=== PATIENT | male | born 1940 | race Caucasian/White ===

== ENCOUNTER 2020-09-20 06:53 | Day surgery (SDC) | payer MEDICARE, BC ==
[~2020-09-20] VITALS: Ht 175.3 cm; Wt 77.9 kg
[~2020-09-20 06:53] MED LIST: ALBU90OI INH; ASCO500 PO; ATOR10 PO; Flovent Disku250 MCG INH; GINKGO60 MG PO; OMEGA-3 FISH O1 EAC5 PO; VITAMIN D310 MC4 PO
--- NOTE | 2020-09-20 07:52 | NUR ---
09/20/20 0752 Raquel PedersonHue CHARTING BY [facility].S
== END 2020-09-20 09:10 | disposition home or self-care (01) ==
LOC: ORSCSDS 06:53
PROVIDERS: Surgery
PROC: 3E0H8GC Introduction of Other Therapeutic Substance into Lower GI, Via Natural or Artificial Opening Endoscopic (ICD-10-PCS; principal; 2020-09-20 08:00)
PROC: 0DBP8ZX Excision of Rectum, Via Natural or Artificial Opening Endoscopic, Diagnostic (ICD-10-PCS; principal; 2020-09-20 08:00)
DX: R19.4 Change in bowel habit (principal); D12.8 Benign neoplasm of rectum; D12.4 Benign neoplasm of descending colon; K64.4 Residual hemorrhoidal skin tags; K40.90 Unilateral inguinal hernia, without obstruction or gangrene, not specified as recurrent; Z87.891 Personal history of nicotine dependence; J45.909 Unspecified asthma, uncomplicated; Z79.899 Other long term (current) drug therapy
CPT/HCPCS: 82947; 88305; J2704; J7120

== ENCOUNTER 2020-09-24 15:20 | Inpatient (IN) | payer MEDICARE, BC ==
[~2020-09-24] VITALS: Ht 175.3 cm; Wt 71.0 kg
--- NOTE | 2020-09-24 15:29 | NUR ---
PT ARRIVED TO UNIT DIRECT ADMIT TO DR ENRIQUEZ AT APROX [id number]
[2020-09-24 17:05] LABS: Alanine Aminotransfer (ALT/SGP 25 U/L (12-78); Albumin, Blood 3.7 g/dL (3.4-5.0); Albumin/Globulin Ratio 1.2 (0.8-1.8); Alk Phos 42 U/L (50-136); Anion Gap 5 mmol/L (6-16); Aspartate Aminotrans (AST/SGOT 25 U/L (12-37); Bilirubin, Total 0.6 mg/dL (0.1-1.0); Blood Urea Nitrogen 8 mg/dL (8-24); CO2, Blood 26 mmol/L (21-32); Calcium, Blood 9.1 mg/dL (8.5-10.1); Chloride, Blood 108 mmol/L (98-108); Creatinine, Blood 0.89 mg/dL (0.60-1.20); Glomerular Filtration Rate >60 (60-); Glucose, Blood 88 mg/dL (70-99); Potassium, Blood 3.8 mmol/L (3.5-5.5); Sodium, Blood 139 mmol/L (136-145); Total Protein, Blood 6.7 g/dL (6.4-8.2)
--- NOTE | 2020-09-24 18:33 | NUR ---
SHIFT SUMMARY PT HAS DONE WELL SINCE ARRIVAL TO UNIT. IVF RUNNING PER EMAR. INDEPENDENTLY AMBULATING IN ROOM. ABD DISTENDED, TENDER WITH PALPATION-PT REPORTS PAIN TOLERABLE. PLAN TO CONTINUE IV HYDRATION TILL SCHEDULED SURGERY WEDNESDAY WITH DR ENRIQUEZ.
--- NOTE | 2020-09-25 04:01 | NUR ---
SHIFT SUMMARY NO ACUTE CHANGES THIS SHIFT. PT DENIES NEED FOR PAIN MEDICATIONS AND PREFERS TO "MASSAGE" HIS ABDOMEN WHEN HE FEELS CRAMPING WHICH HE REPORTS MAKES IT FEEL BETTER. IVF INFUSING PER ORDERS. PT INDEP TO THE RESTROOM. USES CALL LIGHT APPROPRIATELY.
--- NOTE | 2020-09-25 10:44 | NUR ---
AMBULATED DOWN THE HALLS THIS AM, DENIES ANY PAIN OR NAUSEA.
--- NOTE | 2020-09-25 15:12 | NUR ---
RESTING IN BED, ENCOURAGED TO AMBULATE, DENIES ANY PAIN OR NAUSEA, REPORTS TOELRATING CLEAR LIQUIDS WELL.
--- NOTE | 2020-09-25 17:48 | NUR ---
DENIED ANY PAIN OR NAUSEA TODAY, REPORTS TOLERATING CLEAR LIQUIDS WELL, REPORTS HAVING SOME LOOSE STOOLS TODAY, AMBULATED DOWN THE HALLS X2, NPO AFTER MN, NO ACUTE CHANGES THIS SHIFT.
[2020-09-26 04:18] LABS: BASOPHILS ABSOLUTE AUTO 0.02 K/mm3 (0.00-0.23); BASOPHILS PERCENT AUTO 0 % (0-2); EOSINOPHILS ABSOLUTE AUTO 0.09 K/mm3 (0.00-0.68); EOSINOPHILS PERCENT AUTO 2 % (0-6); Hematocrit 43.7 % (37.0-53.0); IMMATURE GRAN ABSOLUTE AUTO 0.01 K/mm3 (0.00-0.10); IMMATURE GRAN PERCENT AUTO 0 % (0-1); LYMPHOCYTES ABSOLUTE AUTO 1.73 K/mm3 (0.84-5.20); LYMPHOCYTES PERCENT AUTO 32 % (21-46); MONOCYTES ABSOLUTE AUTO 0.64 K/mm3 (0.16-1.47); MONOCYTES PERCENT AUTO 12 % (4-13); Mean Corpuscular HGB 27.7 pg (26.0-34.0); Mean Corpuscular Volume 87 fL (80-100); Mean Platelet Volume 9.8 fL (9.1-12.4); NEUTROPHILS ABSOLUTE AUTO 2.85 K/mm3 (1.96-9.15); NEUTROPHILS PERCENT AUTO 53 % (41-73); Platelet Count 151 K/mm3 (150-400); RDW Coefficient Variation 12.7 % (11.7-14.2); RDW Standard Deviation 40.4 fL (35.1-46.3); Red Blood Cell Count 5.05 M/mm3 (4.30-5.90); White Blood Cell Count 5.34 K/mm3 (4.00-11.30)
[2020-09-26 04:38] LABS: Magnesium, Blood 2.7 mg/dL (1.6-2.4)
[2020-09-26 04:39] LABS: Anion Gap 4 mmol/L (6-16); Blood Urea Nitrogen 6 mg/dL (8-24); Bun/Creatinine Ratio 7.7 (12.0-20.0); CO2, Blood 27 mmol/L (21-32); Calcium, Blood 8.5 mg/dL (8.5-10.1); Chloride, Blood 112 mmol/L (98-108); Creatinine, Blood 0.78 mg/dL (0.60-1.20); Glomerular Filtration Rate >60 (60-); Glucose, Blood 113 mg/dL (70-99); Sodium, Blood 143 mmol/L (136-145)
--- NOTE | 2020-09-26 06:13 | NUR ---
PT VSS T/O NIGHT. PT DENIED ABD PAIN/N/V, REP +UNFORMED BM. PT INDEP IN ROOM, ANDRIA WELL. PT NPO POST MIDNIGHT FOR PLAN FOR HEMICOLECTOMY TODAY. IVF CONT PER ORDERS.
--- NOTE | 2020-09-26 10:34 | NUR ---
PT UNABLE TO ASSESS THIS AM, WAS TAKEN TO DAY SURGERY EARLY THIS AM, PT CURRENTLY IN OR.
--- NOTE | 2020-09-26 14:55 | NUR ---
POST OP ARRIVED FROM PACU VIA GURNEY, AWAKE BUT DROWSY, ANSWERS QUESTIONS APPROPRIATELY, DENIES ANY NAUSEA, REPORTS HAVING SOME INCISIONAL PAIN BUT DENIES ANY NEED FOR PAIN MEDS AT THIS TIME, LS CLEAR, HYPOACTIVE BT'S X4, ABD SOFT, MILDLY DISTENDED, CONT. TO MONITOR POST OP VS AND ANY CHANGES.
--- NOTE | 2020-09-26 17:40 | NUR ---
SUMMARY VSS, TOLERATING SMALL SIPS OF CLEAR LIQUIDS WELL, REPORTS PAIN IS BETTER AFTER MEDICATED WITH IV DILAUDID, ABD INCISIONS C/D/I, NO ACUTE CHANGES THIS SHIFT.
[2020-09-27 05:00] LABS: BASOPHILS ABSOLUTE AUTO 0.01 K/mm3 (0.00-0.23); BASOPHILS PERCENT AUTO 0 % (0-2); EOSINOPHILS PERCENT AUTO 0 % (0-6); Hematocrit 44.7 % (37.0-53.0); Hemoglobin 13.9 g/dL (13.5-17.5); IMMATURE GRAN ABSOLUTE AUTO 0.03 K/mm3 (0.00-0.10); IMMATURE GRAN PERCENT AUTO 0 % (0-1); LYMPHOCYTES PERCENT AUTO 7 % (21-46); MONOCYTES ABSOLUTE AUTO 1.19 K/mm3 (0.16-1.47); MONOCYTES PERCENT AUTO 9 % (4-13); Mean Corpuscular HGB 27.5 pg (26.0-34.0); Mean Corpuscular HGB Conc 31.1 g/dL (31.5-36.5); Mean Corpuscular Volume 89 fL (80-100); NEUTROPHILS ABSOLUTE AUTO 10.51 K/mm3 (1.96-9.15); NEUTROPHILS PERCENT AUTO 83 % (41-73); Platelet Count 163 K/mm3 (150-400); RDW Standard Deviation 42.4 fL (35.1-46.3); Red Blood Cell Count 5.05 M/mm3 (4.30-5.90); White Blood Cell Count 12.64 K/mm3 (4.00-11.30)
[2020-09-27 05:32] LABS: Magnesium, Blood 2.1 mg/dL (1.6-2.4)
[2020-09-27 05:33] LABS: Anion Gap 5 mmol/L (6-16); Blood Urea Nitrogen 7 mg/dL (8-24); Bun/Creatinine Ratio 6.9 (12.0-20.0); CO2, Blood 26 mmol/L (21-32); Calcium, Blood 8.4 mg/dL (8.5-10.1); Chloride, Blood 108 mmol/L (98-108); Creatinine, Blood 1.02 mg/dL (0.60-1.20); Glomerular Filtration Rate >60 (60-); Glucose, Blood 136 mg/dL (70-99); Potassium, Blood 4.5 mmol/L (3.5-5.5); Sodium, Blood 139 mmol/L (136-145)
--- NOTE | 2020-09-27 06:28 | NUR ---
POD 1 S/P LAP COLECTOMY. PT VSS T/O NIGHT. SATS LOW 90% ON 2LO2 NC. PT BREATHING SHALLOW R/T PAIN. PT HESITANT TO TAKE PAIN MEDS, EDUCATED ON IMPORTANCE OF PAIN MGMT R/T COMFORT, RESP STATUS, AND MOBILITY. PT REP PAIN IMPROVED THIS AM AFTER PRN MEDS. PT UP OOB W/1 MOD ASSIST, IS PAINFUL W/MVMT. PT REP MILD NAUSEA X1, NO EMESIS. BT MORE ACTIVE THIS AM, NO FLATUS YET. INCISIONS CDI. PLAN TO D/C IRVING CATH THIS AM.
--- NOTE | 2020-09-27 15:35 | NUR ---
SHIFT SUMMARY: POD 1 LAP MALIA PATIENT IS ALERT AND ORIENTED X4. VS ARE WNL AND IS ON RA AT THIS TIME. HE WILL OCCASIONALLY PUT ON HIS NASAL CANNULA AT 2L OXYGEN PRN. PAIN IS MANAGED WITH IV DILAUDID THIS SHIFT. HE WORKED WITH PT TODAY AND WAS A 1 PERSON ASSIST WITH FWW AND GAIT BELT. HIS 3 LAP SITES ON THE ABD ARE C/D/I. HE IS TOLERATING SMALL AMOUNTS OF PO INTAKE. HE IS VOIDING WELL. PATIENT HAS PASSED SMALL AMOUNT OF GAS TODAY. PATIENT HAS AMBULATED IN THE ROOM TWICE TODAY. FAMILY MEMBER IS CURRENTLY AT BEDSIDE. CALL LIGHT WITHIN REACH. HE IS RESTING IN BED AT THIS TIME. THE PLAN IS TO CONTINUE PAIN MANAGEMENT AND ENCOURAGING MORE AMBULATION.
--- NOTE | 2020-09-27 20:11 | NUR ---
RECEIVED REPORT AND ASSUMED CARE OF PT. HE IS LYING IN BED, AWAKE, ALERT AND ORIENTED. HE STATES THAT HE TRIED TO BEND OVER AND RIPPER OPERATOR A TISSUE THAT WAS ON THE FLOOR AND HE LOST HIS BALANCE AND CAUGHT HIMSELF ON HIS HANDS AND KNEES. HE STATES THAT IT CAUSED PAIN TO HIS ABDOMINAL INCISION, BUT DENIES ANY OTHER SYMPTOMS. HE STATES THAT HE WAS ABLE TO GET HIMSELF BACK TO BED INDEPENDENTLY. HE WAS EDUCATED ON SAFETY AND FALL PREVENTION MEASURES AND REQUESTED TO CALL BEFORE GETTING OUT OF BED SO THAT STAFF CAN BE PRESENT FOR SAFETY. HE VERBALIZED UNDERSTANDING AND STATED THAT HE WOULD USE THE CALL LIGHT TO NOTIFY STAFF. WILL MEDICATE PER MAR. HE DENIES ANY OTHER COMPLAINTS OR CONCERNS AT THIS TIME. EZEQUIELTM.
[2020-09-28 04:29] LABS: BASOPHILS ABSOLUTE AUTO 0.01 K/mm3 (0.00-0.23); BASOPHILS PERCENT AUTO 0 % (0-2); EOSINOPHILS ABSOLUTE AUTO 0.02 K/mm3 (0.00-0.68); EOSINOPHILS PERCENT AUTO 0 % (0-6); Hematocrit 41.6 % (37.0-53.0); Hemoglobin 12.9 g/dL (13.5-17.5); IMMATURE GRAN ABSOLUTE AUTO 0.02 K/mm3 (0.00-0.10); IMMATURE GRAN PERCENT AUTO 0 % (0-1); LYMPHOCYTES ABSOLUTE AUTO 0.99 K/mm3 (0.84-5.20); LYMPHOCYTES PERCENT AUTO 13 % (21-46); MONOCYTES ABSOLUTE AUTO 0.96 K/mm3 (0.16-1.47); MONOCYTES PERCENT AUTO 12 % (4-13); Mean Corpuscular HGB 27.9 pg (26.0-34.0); Mean Corpuscular Volume 90 fL (80-100); NEUTROPHILS ABSOLUTE AUTO 5.93 K/mm3 (1.96-9.15); NEUTROPHILS PERCENT AUTO 75 % (41-73); Platelet Count 154 K/mm3 (150-400); RDW Coefficient Variation 12.7 % (11.7-14.2); RDW Standard Deviation 41.7 fL (35.1-46.3); Red Blood Cell Count 4.62 M/mm3 (4.30-5.90); White Blood Cell Count 7.93 K/mm3 (4.00-11.30)
--- NOTE | 2020-09-28 06:42 | NUR ---
SHIFT SUMMARY: KIRIT IS A&OX4. VSS, NO ACUTE EVENTS OVERNIGHT. HE HAS BEEN INDEPENDENT IN THE ROOM DESPITE STAFF REQUEST TO CALL. HE IS URINATING WITHOUT DIFFICULTY. LAP SITES C/D&I. HE IS TOLERATING SMALL AMOUNTS OF CLEARS. IV PATENT. HE REPORTS PASSING SMALL AMOUNTS OF FLATUS. HE REPORTS ADEQUATE PAIN CONTROL WITH TWO TABLETS OF OXYCODONE AND IV DILAUDID. HE IS LYING IN BED WITH THE CALL LIGHT IN REACH. WILL REPORT TO DAY SHIFT RN.
--- NOTE | 2020-09-28 16:35 | NUR ---
SHIFT SUMMARY PT IS A/O X4, IND IN ROOM. TOLERATING CLEAR LIQUID DIET W/O NAUSEA OR EMESIS. DENIES FLATUS OR BM TODAY. PT HAD SOME GAS PAIN AT START OF SHIFT AND WAS MEDICATED WITH SIMETHICONE PER EMAR. PT HAS DENIED PAIN TODAY AND DELCINED PAIN MEDICATION T/O THE SHIFT. HE WAS ABLE TO AMBULATE IN HALLWAY WITH THERAPY AND HAD A SHOWER TODAY. NO ACUTE CHANGES THIS SHIFT.
--- NOTE | 2020-09-28 19:45 | NUR ---
RECEIVED REPORT AND ASSUMED CARE OF PT. HE IS LYING IN BED, AWAKE, ALERT AND ORIENTED. DENIES ANY NEEDS AT THIS TIME. PT REPOSITIONED IN BED. TM.
--- NOTE | 2020-09-29 06:26 | NUR ---
SHIFT SUMMARY: KIRIT IS A&OX4. VSS, NO ACUTE EVENTS OVERNIGHT. HE REPORTS IMPROVING PAIN AND STATES THAT HE HAS PASSED A LITTLE FLATUS THIS SHIFT. HE REPORTS EXPECTING TO HAVE A BM TODAY. HE HAS RESTED QUIETLY FOR THE MAJORITY OF THE NIGHT. HE IS INDEPENDENT TO THE BATHROOM. HE IS LYING IN BED WITH THE CALL LIGHT IN REACH. WILL REPORT TO DAY SHIFT RN.
--- NOTE | 2020-09-29 17:54 | NUR ---
SHIFT SUMMARY PATIENT ALERT AND ORIENTED THROUGHOUT SHIFT. INDEPENDENT IN ROOM. TOLERATING REGULAR DIET THIS SHIFT. REPORTS A COUPLE EPISODES OF NAUSEA, NO VOMITING. ABD INCISIONS WNL. PAIN CONTROLLED WITH ORAL PAIN MEDS. VOIDING WELL. PLAN TO DISCHARGE HOME TOMORROW 09/30/20.
--- NOTE | 2020-09-29 20:02 | NUR ---
RECEIVED REPORT AND ASSUMED CARE OF PT. HE IS LYING QUIETLY IN BED, REPORTS THAT HIS PAIN IS IMPROVING AFTER THE RETURN OF BOWEL FUNCTION TODAY. DENIES ANY NEEDS AT THIS TIME. MARLENY.
--- NOTE | 2020-09-29 23:52 | NUR ---
PT REPORTS HAVING A BM WITH SEAN RED BLOOD "ENOUGH TO FILL THE ENTIRE BOWL". HE FLUSHED THE TOILET PRIOR TO ALERTING STAFF. HE REPORTS INTERMITTENT DIZZINESS/LIGHTHEADEDNESS THAT BEGAN YESTERDAY, DENIES ANY OTHER SYMPTOMS. CBC ORDERD FOR AM. PT REQUESTED TO CALL STAFF BEFORE FLUSHING TO ALLOW FOR VISUALIZATION OF SPECIMEN. EDUCATED ON SIGNS/SYMPTOMS AND ENCOURAGED TO CALL STAFF FOR ASSISTANCE OF DIZZINESS/LIGHTHEADEDNESS PERSISTS OR ANY NEW/WORSENING SYMPTOMS OCCUR.
[2020-09-30 02:36] LABS: BASOPHILS ABSOLUTE AUTO 0.01 K/mm3 (0.00-0.23); BASOPHILS PERCENT AUTO 0 % (0-2); EOSINOPHILS ABSOLUTE AUTO 0.11 K/mm3 (0.00-0.68); EOSINOPHILS PERCENT AUTO 3 % (0-6); Hematocrit 39.8 % (37.0-53.0); Hemoglobin 12.5 g/dL (13.5-17.5); IMMATURE GRAN ABSOLUTE AUTO 0.01 K/mm3 (0.00-0.10); IMMATURE GRAN PERCENT AUTO 0 % (0-1); LYMPHOCYTES ABSOLUTE AUTO 0.81 K/mm3 (0.84-5.20); LYMPHOCYTES PERCENT AUTO 21 % (21-46); MONOCYTES ABSOLUTE AUTO 0.77 K/mm3 (0.16-1.47); MONOCYTES PERCENT AUTO 20 % (4-13); Mean Corpuscular HGB 27.5 pg (26.0-34.0); Mean Corpuscular HGB Conc 31.4 g/dL (31.5-36.5); Mean Corpuscular Volume 88 fL (80-100); Mean Platelet Volume 9.8 fL (9.1-12.4); NEUTROPHILS ABSOLUTE AUTO 2.16 K/mm3 (1.96-9.15); NEUTROPHILS PERCENT AUTO 56 % (41-73); Platelet Count 182 K/mm3 (150-400); RDW Coefficient Variation 12.2 % (11.7-14.2); RDW Standard Deviation 39.3 fL (35.1-46.3); Red Blood Cell Count 4.55 M/mm3 (4.30-5.90); White Blood Cell Count 3.87 K/mm3 (4.00-11.30)
--- NOTE | 2020-09-30 03:00 | NUR ---
THIS RN WAS CALLED TO THE ROOM BY TODD JOHNSON WHO NOTICED WHILE COLLECTING THE VITALS THAT THE HR ON THE MONITOR WAS IRREGULAR. APICAL HEART SOUNDS IRREGULAR. DR. ENRIQUEZ CONTACTED, ORDER OBTAINED FOR EKG WHICH SHOWED A-FIB. DR. ENRIQUEZ CONTACTED WITH RESULTS, NEW ORDER FOR TELE, LABS, AND HOSPITALIST CONSULT. PT REPORTS NAUSEA AND A FEELING OF FULLNESS ON HIS ABDOMEN, CONTINUES TO REPORT TENDERNESS, ESPECIALLY TO THE LOWER ABODMEN BILATERALLY. DENIES THE NEED FOR ANTIEMETICS AT THIS TIME. TELE IN PLACE, A-FIB @ 91 PER MAY. WCTM.
[2020-09-30 04:08] LABS: Anion Gap 4 mmol/L (6-16); Blood Urea Nitrogen 7 mg/dL (8-24); Bun/Creatinine Ratio 7.8 (12.0-20.0); CO2, Blood 30 mmol/L (21-32); Calcium, Blood 8.8 mg/dL (8.5-10.1); Chloride, Blood 106 mmol/L (98-108); Glomerular Filtration Rate >60 (60-); Glucose, Blood 97 mg/dL (70-99); Magnesium, Blood 2.1 mg/dL (1.6-2.4); Phosphorus, Blood 2.3 mg/dL (2.5-4.9); Potassium, Blood 3.8 mmol/L (3.5-5.5); Sodium, Blood 140 mmol/L (136-145)
--- NOTE | 2020-09-30 04:36 | NUR ---
PT UP TO BATHROOM. REGIONAL ECONOMIST, MAY, NOTIFIED THIS NURSE THAT THE RATE HAD JUMPED UP TO 130s-140s. TM.
[2020-09-30 05:01] LABS: Source, Urine Clean Catch
[2020-09-30 05:05] LABS: Bilirubin, Urine Neg (Neg); Blood, Urine Neg (Neg); Glucose Qualitative, Urine Neg (Neg); Ketones, Urine 3+ (Neg); Leukocyte Esterase, Urine Neg (Neg); Nitrite, Urine Neg (Neg); Protein, Urine Neg (Neg); Urobilinogen, Urine NORM (Normal)
[2020-09-30 05:10] LABS: Appearance, Urine Clear (Clear); Color, Urine Yellow (P-Yellow)
--- NOTE | 2020-09-30 06:50 | NUR ---
SHIFT SUMMARY: KIRIT IS A&OX4. VSS EXCEPT TACHYCARDIA R/T NEW ONSET A-FIB. HE IS INDEPENDENT IN THE ROOM, REPORTS PASSING BM AND FLATUS THIS SHIFT, DENIES ANY FURTHER BM SINCE BLOODY STOOL APPROX MIDNIGHT. TELE IN PLACE, IV TO R AC PATENT, SCDs IN PLACE. HE IS TOLERATING PO INTAKE WELL, BUT HAS C/O SOME NAUSEA THIS AM, DECLINED MEDICATION. HE IS LYING IN BED WITH THE CALL LIGHT IN REACH. WILL REPORT TO DAY SHIFT RN.
--- NOTE | 2020-09-30 08:02 | NUR ---
PT CALLED NURSING STAFF TO REQUEST TELE AND IV BE REMOVED. STATES THAT HE IS NOT UNDERGOING ANY MORE TESTING AND WANTS TO GO HOME. TELE REMOVED, CORONER TRANSPORT TECHNICIAN NOTIFIED. IV SALINE LOCKED. DISCUSSED IMPORTANCE OF WORKUP D/T NEW ONSET OF A-FIB. REPORT GIVEN TO DAY SHIFT RN.
--- NOTE | 2020-09-30 09:42 | NUR ---
PT IN IMAGING
--- NOTE | 2020-09-30 09:56 | NUR ---
back from CT
[2020-09-30 11:04] LABS: Base Excess Venous 4.9 mmol/L; Bicarbonate Venous 28.4 mmol/L (24.0-30.0); PCO2 Venous 40.6 mmHg (38-42); pH Blood Venous 7.46 (7.34-7.37)
[2020-09-30 11:28] LABS: Hematocrit 38.7 % (37.0-53.0); Hemoglobin 12.5 g/dL (13.5-17.5)
--- NOTE | 2020-09-30 14:52 | NUR ---
echo in to see pt.
--- NOTE | 2020-09-30 16:33 | NUR ---
SUPERVISOR WASH HOUSE IN ROOM.
--- NOTE | 2020-09-30 17:29 | NUR ---
SUMMARY PT HAS BEEN IN AFIB T/O SHIFT. CURRENTLY RUNNING AFIB IN 90S PER CASSANDRA/Wandoujia. DR ENRIQUEZ ADMINISTERED 3 DOSES METOPROLOL IV TO ATTEMPT TO CONVERT PT BACK TO SINUS RHYTHM. RATE IMPROVED BUT CONTINUES TO BE IN AFIB. ECHO AND EKG COMPLETED THIS SHIFT. PT PASSING STOOL AND VOIDING. CURRENTLY RESTING W/EYES CLOSED, CALL LIGHT IN REACH.
--- NOTE | 2020-10-01 06:15 | NUR ---
SHIFT SUMMARY POD5 LAP COLECTOMY W/ DR. ENRIQUEZ. NO ACUTE CHANGES OVERNIGHT. PT SLEPT GOOD T/O SHIFT. PT ON TELE: AFIB AT 95 AT THE BEGINNING OF SHIFT, AND HE IS ON AFIB WITH SOME PVC'S AT 85 AT 0500AM. PT DENIES CHEST PAIN AND SOB. TOLERATING PO INTAKE, DENIES NAUSEA AND VOMITING. PASSING SOME FLATUS. VOIDING ADEQUATELY. 1 MINIMAL SBA. HE WALKS STEADY ON HIS FEET. REPORTS ABD PAIN 4/10, TOLERABLE WITHOUT ANY PAIN MEDICATION. OFFERED PAIN MED, BUT PT REFUSED. PT ALSO C/O OF BLE MUSCLE CRAMPING THIS MORNING AT 0600 AM. CALL LIGHT WITHIN REACH. WILL PROVIDE REPORT TO ONCOMING NURSE.
--- NOTE | 2020-10-01 07:56 | NUR ---
DR ENRIQUEZ IN TO SEE PT.
--- NOTE | 2020-10-01 10:44 | NUR ---
DR CARMICHAEL IN TO SEE PT PLAN TO DC TODAY.
--- NOTE | 2020-10-01 10:52 | NUR ---
PT WORKING W/THERAPY
[2020-10-01] MEDS ORDERED: DOCU100 PO (11:32)
[2020-10-01] MEDS ORDERED: LIDO700A20 TOP (11:33)
[2020-10-01] MEDS ORDERED: METO50 PO (11:34)
[2020-10-01] MEDS ORDERED: SIME80CH PO (11:35)
[2020-10-01] MEDS ORDERED: XARELTO20 MG PO (11:36)
[2020-10-01] MEDS ORDERED: OXYC5 PO (12:18)
--- NOTE | 2020-10-01 13:23 | NUR ---
PT DISCHARGED DC'D IV, CATHETER INTACT. REVIEWED DC INSTRUCTIONS W/PT; VERBALIZED UNDERSTANDING. PT LEFT UNIT IN WC W/POSSESSIONS AND DC PAPERWORK IN HAND TO RIDE AWAITING OUTSIDE.
--- NOTE | 2020-10-01 13:56 | NUR ---
Pt. is dsoing fine and may go home today or josefina offered prayers for pt.
== END 2020-10-01 13:05 | disposition home or self-care (01) | DRG 330 ==
LOC: SURS 15:20
PROVIDERS: Family Medicine; ADMIT Surgery
PROC: 0DBM4ZZ Excision of Descending Colon, Percutaneous Endoscopic Approach (ICD-10-PCS; principal; 2020-09-26 09:15)
DX: K56.609 Unspecified intestinal obstruction, unspecified as to partial versus complete obstruction (principal); K62.5 Hemorrhage of anus and rectum; E78.5 Hyperlipidemia, unspecified; I48.91 Unspecified atrial fibrillation; J45.909 Unspecified asthma, uncomplicated; G43.909 Migraine, unspecified, not intractable, without status migrainosus; Z90.49 Acquired absence of other specified parts of digestive tract; Z98.890 Other specified postprocedural states; Z79.899 Other long term (current) drug therapy
CPT/HCPCS: 36415; 71045; 71260; 74177; 80048; 80053; 81003; 82378; 82803; 83605; 83735; 84100; 84145; 84443; 84484; 85014; 85018; 85025; 87040; 88309; 93005; 93010; 93306; 94760; 97110; 97116; 97162; A9270; J0694; J1100; J1170; J1650; J2370; J2405; J2704; J3010; J7120; Q9967

== ENCOUNTER 2020-10-11 08:45 | Day surgery (SDC) | payer MEDICARE, BC ==
[~2020-10-11] VITALS: Ht 175.3 cm; Wt 72.5 kg
[~2020-10-11 08:45] MED LIST changes: +DOCU100 PO; +LIDO700A20 TOP; +METO50 PO; +OXYC5 PO; +SIME80CH PO; +XARELTO20 MG PO
--- NOTE | 2020-10-11 09:23 | NUR ---
Ambulatory in Day Surgery History, Chart, Medications and Allergies reviewed before start of procedure. Lungs clear T/O to Auscultation. Pre-Op teaching done. Pt verbalizes understanding. Patient States Post-Procedure ride home has been arranged.
[2020-10-11] MEDS ORDERED: XARELTO20 MG PO (10:08)
[2020-10-11] MEDS ORDERED: METO100 PO (10:08)
--- NOTE | 2020-10-11 13:13 | NUR ---
LEFT GROIN WITH DERMABOND FROM HERNIA REPAIR CDI
--- NOTE | 2020-10-11 14:20 | NUR ---
Patient up to Ambulate independently. Gait steady. Discharge instructions reviewed with patient. Patient verbalizes understanding. Copy given to patient to take home. Patient States Post-Procedure ride home has been arranged. Discharged via wheelchair to private car for ride home. RESTART XARELTO ON WEDNESDAY, ALL OTHER MEDS OK TO RESUME TODAY
== END 2020-10-11 23:37 | disposition home or self-care (01) ==
LOC: ORSCMMR 08:45
PROVIDERS: Surgery
PROC: 05HM33Z Insertion of Infusion Device into Right Internal Jugular Vein, Percutaneous Approach (ICD-10-PCS; principal; 2020-10-11 10:15)
PROC: 0YU60JZ Supplement Left Inguinal Region with Synthetic Substitute, Open Approach (ICD-10-PCS; principal; 2020-10-11 10:15)
DX: K40.30 Unilateral inguinal hernia, with obstruction, without gangrene, not specified as recurrent (principal); C18.6 Malignant neoplasm of descending colon; I48.91 Unspecified atrial fibrillation; Z87.891 Personal history of nicotine dependence; J45.909 Unspecified asthma, uncomplicated; Z79.01 Long term (current) use of anticoagulants; Z79.899 Other long term (current) drug therapy
CPT/HCPCS: 71045; 77001; C1781; C1788; J0690; J1100; J1642; J1885; J2370; J2405; J2704; J3010; J7120

== ENCOUNTER 2021-09-11 06:42 | Day surgery (SDC) | payer MEDICARE, BC ==
[~2021-09-11] VITALS: Ht 175.3 cm; Wt 74.7 kg
[~2021-09-11 06:42] MED LIST changes: +FISH OIL 1,2001 EAC7 PO; +METO100 PO; +METO100ER PO
== END 2021-09-11 09:07 | disposition home or self-care (01) ==
LOC: ORSCSDS 06:42
PROVIDERS: Surgery
PROC: 0DBP8ZX Excision of Rectum, Via Natural or Artificial Opening Endoscopic, Diagnostic (ICD-10-PCS; principal; 2021-09-11 08:00)
PROC: 0DJD8ZZ Inspection of Lower Intestinal Tract, Via Natural or Artificial Opening Endoscopic (ICD-10-PCS; principal; 2021-09-11 08:00)
DX: Z85.038 Personal history of other malignant neoplasm of large intestine (principal); K62.1 Rectal polyp; K57.50 Diverticulosis of both small and large intestine without perforation or abscess without bleeding; J45.909 Unspecified asthma, uncomplicated; E78.5 Hyperlipidemia, unspecified; Z87.891 Personal history of nicotine dependence; Z79.899 Other long term (current) drug therapy
CPT/HCPCS: 88305; J2704; J7120

== ENCOUNTER 2023-02-11 11:33 | Day surgery (SDC) | payer MEDICARE, BC ==
[~2023-02-11] VITALS: Ht 172.7 cm; Wt 78.9 kg
[~2023-02-11 11:33] MED LIST changes: +ASCO500; -ASCO500 PO; +OMEGA-3 + VITA200 ML; +PROAIR DIGIHAL90 MCG; +VITAMIN E134 M1
--- NOTE | 2023-02-11 12:22 | NUR ---
02/11/23 1222 Iman Jacobs AT [address] AT 1214
[2023-02-11 14:02] VITALS: BP 142/75
== END 2023-02-11 14:23 | disposition home or self-care (01) ==
LOC: ORSCSDS 11:33
PROVIDERS: Ophthalmology
PROC: 08RJ3JZ Replacement of Right Lens with Synthetic Substitute, Percutaneous Approach (ICD-10-PCS; principal; 2023-02-11 13:00)
DX: H25.11 Age-related nuclear cataract, right eye (principal); I10 Essential (primary) hypertension; E78.5 Hyperlipidemia, unspecified; Z79.899 Other long term (current) drug therapy
CPT/HCPCS: J2250; J3010; J3301; J7040; V2632

== ENCOUNTER 2023-02-18 06:39 | Day surgery (SDC) | payer MEDICARE, BC ==
[~2023-02-18] VITALS: Ht 172.7 cm; Wt 80.7 kg
--- NOTE | 2023-02-18 07:00 | NUR ---
02/18/23 0700 Iman Jacobs LIDOCAINE AT [address] AT 0700
[2023-02-18 08:45] VITALS: BP 128/72
== END 2023-02-18 09:03 | disposition home or self-care (01) ==
LOC: ORSCSDS 06:39
PROVIDERS: Ophthalmology
PROC: 08RK3JZ Replacement of Left Lens with Synthetic Substitute, Percutaneous Approach (ICD-10-PCS; principal; 2023-02-18 08:00)
DX: H25.12 Age-related nuclear cataract, left eye (principal); Z96.1 Presence of intraocular lens; J45.909 Unspecified asthma, uncomplicated; I10 Essential (primary) hypertension; Z79.899 Other long term (current) drug therapy; Z87.891 Personal history of nicotine dependence
CPT/HCPCS: J2001; J2250; J3010; J3301; J7040; V2632

== ENCOUNTER 2023-03-31 08:26 | Observation (INO) | payer MEDICARE, BC ==
[2023-03-31] VITALS (25 sets, daily range): BP systolic 92–134; BP diastolic 60–93
[~2023-03-31] VITALS: Ht 172.7 cm; Wt 81.6 kg
[~2023-03-31 08:26] MED LIST changes: +ALBU90OI; +OMEGA 3 FISH OIL PO; +TOCO1000 PO; +Vitamin C100 M1 PO
[2023-03-31] MEDS ORDERED: ATOR20 PO (08:48)
[2023-03-31 16:07] LABS: PCO2 Arterial 46.8 mmHg (35-45); PO2 Arterial 78.6 mmHg (80-100); pH Blood Arterial 7.33 (7.35-7.45)
[2023-03-31 17:34] LABS: Adenovirus Not Detected (NOT DETECT); Bordetella pertussis Not Detected (NOT DETECT); Chlamydophila pneumoniae Not Detected (NOT DETECT); Coronavirus 229E Not Detected (NOT DETECT); Coronavirus HKU1 Not Detected (NOT DETECT); Coronavirus NL63 Not Detected (NOT DETECT); Coronavirus OC43 Not Detected (NOT DETECT); Human Metapneumovirus Not Detected (NOT DETECT); Human Rhinovirus/Enterovirus Not Detected (NOT DETECT); Influenza A/2009-H1 Not Detected (NOT DETECT); Influenza A/H1 Not Detected (NOT DETECT); Influenza A/H3 Not Detected (NOT DETECT); Influenza B Not Detected (NOT DETECT); Mycoplasma pneumoniae Not Detected (NOT DETECT); Parainfluenza Virus 1 Not Detected (NOT DETECT); Parainfluenza Virus 2 Not Detected (NOT DETECT); Parainfluenza Virus 3 Not Detected (NOT DETECT); Parainfluenza Virus 4 Not Detected (NOT DETECT); Respiratory Syncytial Virus Not Detected (NOT DETECT); SARS-Cov-2 (COVID-19), BioFire Not Detected (NOT DETECT)
[2023-03-31 19:04] LABS: BASOPHILS ABSOLUTE AUTO 0.01 K/mm3 (0.00-0.23); BASOPHILS PERCENT AUTO 0 % (0-2); EOSINOPHILS PERCENT AUTO 0 % (0-6); Hematocrit 44.4 % (37.0-53.0); Hemoglobin 14.1 g/dL (13.5-17.5); IMMATURE GRAN ABSOLUTE AUTO 0.05 K/mm3 (0.00-0.10); IMMATURE GRAN PERCENT AUTO 1 % (0-1); LYMPHOCYTES ABSOLUTE AUTO 0.35 K/mm3 (0.84-5.20); LYMPHOCYTES PERCENT AUTO 4 % (21-46); MONOCYTES ABSOLUTE AUTO 0.24 K/mm3 (0.16-1.47); MONOCYTES PERCENT AUTO 2 % (4-13); Mean Corpuscular HGB 28.2 pg (26.0-34.0); Mean Corpuscular HGB Conc 31.8 g/dL (31.5-36.5); Mean Corpuscular Volume 89 fL (80-100); Mean Platelet Volume 10.1 fL (9.1-12.4); NEUTROPHILS ABSOLUTE AUTO 9.22 K/mm3 (1.96-9.15); NEUTROPHILS PERCENT AUTO 94 % (41-73); Platelet Count 141 K/mm3 (150-400); RDW Coefficient Variation 13.4 % (11.7-14.2); RDW Standard Deviation 43.5 fL (35.1-46.3); White Blood Cell Count 9.87 K/mm3 (4.00-11.30)
[2023-03-31 19:34] LABS: Albumin, Blood 3.8 g/dL (3.4-5.0); Albumin/Globulin Ratio 1.3 (0.8-1.8); Bilirubin, Total 0.9 mg/dL (0.1-1.0); Bun/Creatinine Ratio 11.6 (12.0-20.0); Calcium, Blood 9.3 mg/dL (8.5-10.1); Creatinine, Blood 1.21 mg/dL (0.60-1.20); Potassium, Blood 4.5 mmol/L (3.5-5.5); Total Protein, Blood 6.8 g/dL (6.4-8.2)
[2023-04-01 00:12] VITALS: BP 108/71
[2023-04-01 04:44] VITALS: BP 108/68
[2023-04-01 05:22] LABS: Hematocrit 39.8 % (37.0-53.0); Hemoglobin 12.7 g/dL (13.5-17.5); Mean Corpuscular HGB 28.4 pg (26.0-34.0); Mean Corpuscular HGB Conc 31.9 g/dL (31.5-36.5); Mean Corpuscular Volume 89 fL (80-100); Mean Platelet Volume 10.1 fL (9.1-12.4); Platelet Count 134 K/mm3 (150-400); RDW Coefficient Variation 13.2 % (11.7-14.2); RDW Standard Deviation 43.7 fL (35.1-46.3); Red Blood Cell Count 4.47 M/mm3 (4.30-5.90); White Blood Cell Count 10.78 K/mm3 (4.00-11.30)
[2023-04-01 05:51] LABS: Bun/Creatinine Ratio 11.8 (12.0-20.0); Calcium, Blood 8.9 mg/dL (8.5-10.1); Creatinine, Blood 1.19 mg/dL (0.60-1.20); Potassium, Blood 4.6 mmol/L (3.5-5.5)
[2023-04-01 07:25] VITALS: BP 117/75
[2023-04-01] MEDS ORDERED: TIOT18 INH (10:55)
[2023-04-01] MEDS ORDERED: ALBU90OI INH (10:55)
== END 2023-04-01 13:04 | disposition home or self-care (01) ==
LOC: SURS 08:26 → ORSCMMR 08:26 → ORD 10:00 → SURS 16:44 → ORSCMMR 16:45 → SURS 16:46
PROVIDERS: Surgery; ADMIT Internal Medicine
PROC: 8E0W4CZ Robotic Assisted Procedure of Trunk Region, Percutaneous Endoscopic Approach (ICD-10-PCS; principal; 2023-03-31 10:00)
PROC: 0YQ64ZZ Repair Left Inguinal Region, Percutaneous Endoscopic Approach (ICD-10-PCS; principal; 2023-03-31 10:00)
PROC: 0WQF0ZZ Repair Abdominal Wall, Open Approach (ICD-10-PCS; principal; 2023-03-31 10:00)
DX: K40.91 Unilateral inguinal hernia, without obstruction or gangrene, recurrent (principal); K43.9 Ventral hernia without obstruction or gangrene; J45.909 Unspecified asthma, uncomplicated; E78.5 Hyperlipidemia, unspecified; G43.909 Migraine, unspecified, not intractable, without status migrainosus; G62.9 Polyneuropathy, unspecified; J96.01 Acute respiratory failure with hypoxia; J44.9 Chronic obstructive pulmonary disease, unspecified; Z85.038 Personal history of other malignant neoplasm of large intestine; Z90.49 Acquired absence of other specified parts of digestive tract; Z79.899 Other long term (current) drug therapy
CPT/HCPCS: 0202U; 36415; 36600; 71046; 80048; 80053; 82803; 83880; 84145; 85025; 85027; 94640; 94664; 94760; 94761; A9270; C1781; J1100; J2371; J2405; J2704; J3010; J7120

== ENCOUNTER → 2024-12-13 | Outpatient (CLI) | payer MEDICARE, BC ==
[~2024-12-13] MED LIST changes: +AMOCLA875 PO; +ATOR20 PO; +FUROSEMIDE20 MG PO; +PLAVIX75 MG PO; +TIOT18 INH
== END ==
LOC: LAB SHORT 10:28 → LAB 10:28
DX: M1A.0720 Idiopathic chronic gout, left ankle and foot, without tophus (tophi) (principal)
CPT/HCPCS: 84550

== ENCOUNTER 2025-02-21 16:36 | Emergency (ER) | payer MEDICARE, BC ==
[~2025-02-21] VITALS: Ht 175.3 cm; Wt 63.5 kg
[2025-02-21 17:19] LABS: BASOPHILS ABSOLUTE AUTO 0.02 K/mm3 (0.00-0.23); BASOPHILS PERCENT AUTO 0 % (0-2); EOSINOPHILS ABSOLUTE AUTO 0.09 K/mm3 (0.00-0.68); EOSINOPHILS PERCENT AUTO 1 % (0-6); Hematocrit 38.2 % (37.0-53.0); Hemoglobin 12.2 g/dL (13.5-17.5); IMMATURE GRAN ABSOLUTE AUTO 0.03 K/mm3 (0.00-0.10); IMMATURE GRAN PERCENT AUTO 0 % (0-1); LYMPHOCYTES ABSOLUTE AUTO 1.81 K/mm3 (0.84-5.20); LYMPHOCYTES PERCENT AUTO 18 % (21-46); MONOCYTES ABSOLUTE AUTO 1.25 K/mm3 (0.16-1.47); MONOCYTES PERCENT AUTO 12 % (4-13); Mean Corpuscular HGB Conc 31.9 g/dL (31.5-36.5); Mean Corpuscular Volume 86 fL (80-100); NEUTROPHILS ABSOLUTE AUTO 6.98 K/mm3 (1.96-9.15); NEUTROPHILS PERCENT AUTO 69 % (41-73); NRBC ABSOLUTE 0.00 K/mm3 (0.00-0.02); NRBC Auto 0.0 /100 WBC (0.0-0.2); Platelet Count 227 K/mm3 (150-400); RDW Coefficient Variation 13.5 % (11.7-14.2); RDW Standard Deviation 42.5 fL (35.1-46.3)
[2025-02-21 17:41] LABS: Alanine Aminotransfer (ALT/SGP 16.0 U/L (12-78); Albumin, Blood 3.3 g/dL (3.4-5.0); Albumin/Globulin Ratio 0.9 (0.8-1.8); Anion Gap 9.0 mmol/L (3-11); Aspartate Aminotrans (AST/SGOT 19.0 U/L (12-37); Bilirubin, Total 0.6 mg/dL (0.1-1.0); Blood Urea Nitrogen 11.0 mg/dL (8-24); CO2, Blood 29.0 mmol/L (21-32); Calcium, Blood 9.2 mg/dL (8.5-10.1); Chloride, Blood 102.0 mmol/L (98-108); Creatinine, Blood 1.08 mg/dL (0.60-1.20); Globulin, Blood 3.7 g/dL (2.2-4.0); Glucose, Blood 123.0 mg/dL (70-99); Potassium, Blood 3.3 mmol/L (3.5-5.5); Sodium, Blood 137.0 mmol/L (136-145); Total Protein, Blood 7.0 g/dL (6.4-8.2)
[2025-02-21] MEDS ORDERED: BACTRIM DS TAB1 EAC1 PO (21:11)
[2025-02-21 21:15] VITALS: BP 117/66
== END 2025-02-21 21:17 | disposition home or self-care (01) ==
LOC: ER 16:36
PROVIDERS: Student in an Organized Health Care Education/Training Program
DX: T85.898A Other specified complication of other internal prosthetic devices, implants and grafts, initial encounter (principal); E87.6 Hypokalemia; I48.91 Unspecified atrial fibrillation; Z79.899 Other long term (current) drug therapy; Z87.891 Personal history of nicotine dependence
CPT/HCPCS: 71046; 74177; 80053; 83880; 84484; 85025; 93005; 93010; 99284-25; A9270; Q9967